=== PATIENT | male | born 1985 | race Caucasian/White ===

== ENCOUNTER 2024-03-06 08:36 | Emergency (ER) | payer MEDICAID, SELFPAY ==
[2024-03-06 08:38] VITALS: BP 145/84; PULSE 70; RESP 20; TEMP 36.6; O2SAT 99
--- NOTE | 2024-03-06 08:50 | ECG_ITS ---
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 Measurements Intervals [place] Rate: 66 P: 61 NE: 158 QRS: 42 QRSD: 95 T: 51 QT: 387 QTc: 408 Interpretive Statements SINUS RHYTHM INCOMPLETE RIGHT BUNDLE BRANCH BLOCK [90+ ms QRS DURATION, TERMINAL R IN V1/V2, 40+ ms S IN I/aVL/V4/V5/V6] No previous ECG available for comparison Electronically Signed On 03-06-2024 21:31:33 TIPPLE REPAIRER by Josse Fang M.D. [id number]
--- NOTE | 2024-03-06 08:50 | XR_ITS ---
WS: [id number] XR chest 1V portable [id number] REASON FOR EXAM: Chest pain FINDINGS: Somewhat prominent tortuosity and ectasia of the ascending aorta and aortic arch for age. Normal heart size. No previous examination for comparison. Calcified granulomas disease bilaterally. No acute pulmonary parenchymal or pleural abnormality. No significant abnormality of the bony thorax. XR/XR chest 1V portable [id number] IMPRESSION: No acute chest abnormality.
[2024-03-06 08:58] LABS: Basophils % 0.5 %; Eosinophils # 0.1 10^3/uL (0.0-0.8); Eosinophils % 1.9 %; Hematocrit 44.5 % (37-53); Lymphocytes # 2.3 10^3/uL (0.8-4.8); Lymphocytes % 36.9 %; Mean Corpuscular HGB Conc 32.8 g/dL (30-55); Mean Corpuscular Hemoglobin 30.5 pg (27-33); Mean Corpuscular Volume 92.9 fl (82-101); Mean Platelet Volume 11.1 fL (7.4-10.4); Monocytes # 0.6 10^3/uL (0.2-0.9); Monocytes % 9.1 %; Neutrophils # 3.23 10^3/uL (1.8-7.7); Neutrophils % 51.3 %; Nucleated Red Blood Cells % 0 %; Platelet Count 166 10^3/cmm (157-399); Red Blood Count 4.79 10^6/uL (3.85-5.65); Red Cell Distribution Width 13.2 % (12.1-15.1); White Blood Count 6.29 10^3/uL (3.29-11.43)
--- NOTE | 2024-03-06 09:17 | ED_ITS ---
HPI - Chest Pain 2 General: Chief Complaint: Chest Pain Stated Complaint: Chest Pain Time Seen by Provider: 03/06/24 08:48 History of Present Illness: 38-year-old male presents emergency room via EMS with complaint of chest discomfort. He was at work doing his usual activities began to have substernal chest pain that eventually after several minutes radiated up into his jaw and left shoulder. The nurse checked his blood pressure it was found to be somewhat elevated he continued to have the pain EMS was called. He was given nitro and insulin aspirin. He reports his pain went from a 7 out of 10 to 1 out of 10. He is not having no significant discomfort at this time. Initial EKG shows normal sinus rhythm without any acute ST changes. He has no history of any cardiac arrhythmias any history of coronary artery disease he is not a smoker is not diabetic. No significant family history of coronary artery disease Associated symptoms: Deny abdominal pain, dyspnea or fever(s) Related Data Home Medications Medication Instructions Recorded Confirmed ibuprofen 200 mg tablet 200 mg PO Q6H PRN Pain 03/06/24 03/06/24 Previous Rx's Medication Instructions Recorded aspirin 81 mg tablet,delayed 81 mg PO DAILY #30 tabs 03/06/24 release pantoprazole 40 mg tablet,delayed 40 mg PO BID 10 days #40 tabs 03/06/24 release (Protonix) Allergies Allergy/AdvReac Type Severity Reaction Status Date / Time No Known Allergies Allergy Verified 03/06/24 08:44 Review of Systems 2 Const: Denies: fever(s) or chills Card: Denies: chest pain Resp: Denies: dyspnea GI: Denies: abdominal pain : Denies: dysuria, urinary frequency or urinary urgency Musc: Denies: neck pain or back pain Skin/Breast: Denies: rash Physical Exam 2 Const: COMMON NORMALS: no acute distress GENERAL APPEARANCE: cooperative and comfortable ORIENTATION/CONSCIOUSNESS: Yes awake, Yes oriented to person, Yes oriented to place and Yes oriented to time HENMT: COMMON NORMALS: normocephalic, atraumatic and hearing grossly normal bilaterally HEAD & SCALP: normocephalic and atraumatic Resp: COMMON NORMALS: normal respiratory effort, No retractions, No use of accessory muscles and clear to auscultation bilaterally AUSCULTATION: clear to auscultation bilaterally Cardio: COMMON NORMALS: regular rate, regular rhythm and No murmurs present (Cardio) RATE: regular rate RHYTHM: regular rhythm GI: COMMON NORMALS: Soft to palpation and No hepatosplenomegaly present A USCULTATION: Yes normoactive bowel sounds PALPATION: Yes Soft to palpation, No Tenderness to palpation present (GI), No Guarding due to palpation present (GI) and Yes No hepatosplenomegaly present Extremity: COMMON NORMALS: normal to inspection, capillary refill normal, no clubbing, cyanosis or edema, no calf tenderness and no pedal edema Neuro: SENSORIUM/ORIENTATION: Yes oriented to person, Yes oriented to place and Yes oriented to time Skin: COMMON NORMALS: no rashes or lesions noted GENERAL SKIN EXAM: no rashes or lesions noted Course 2 Vital Signs: Vital signs: Vital Signs Temperature 97.9 F 03/06/24 08:38 Pulse Rate 68 03/06/24 11:00 Respiratory Rate 14 03/06/24 11:00 Blood Pressure 139/94 03/06/24 11:00 Pulse Oximetry 96 03/06/24 11:00 MDM - Chest Pain Medical Decision Making Patient pain-free at this time. EKG did not show any acute changes cardiac enzymes were negative on the trend. I suspect he had some esophageal spasm which is why the nitro relieves some of the pain. Will have him take a baby aspirin daily set up for an outpatient graded exercise stress test started on Protonix and follow-up with his primary care doctor. Patient is pain-free at the time of discharge. Medical Records I reviewed the patient's medical records. Lab Data I reviewed the patient's lab results. 03/06/24 08:20 03/06/24 08:20 Radiology Impressions Chest X-Ray 03/06/24 08:50 IMPRESSION: No acute chest abnormality. Laboratory Results WBC 6.29 10^3/uL (3.29-11.43) 03/06/24 08:20 RBC 4.79 10^6/uL (3.85-5.65) 03/06/24 08:20 Hgb 14.60 g/dL (11.27-16.99) 03/06/24 08:20 Hct 44.5 % (37-53) 03/06/24 08:20 MCV 92.9 fl (82-101) 03/06/24 08:20 MCH 30.5 pg (27-33) 03/06/24 08:20 MCHC 32.8 g/dL (30-55) 03/06/24 08:20 RDW 13.2 % (12.1-15.1) 03/06/24 08:20 Plt Count 166 10^3/cmm (157-399) 03/06/24 08:20 MPV 11.1 fL (7.4-10.4) H 03/06/24 08:20 Neut % (Auto) 51.3 % 03/06/24 08:20 Lymph % (Auto) 36.9 % 03/06/24 08:20 [place] % (Auto) 9.1 % 03/06/24 08:20 Eos % (Auto) 1.9 % 03/06/24 08:20 Baso % (Auto) 0.5 % 03/06/24 08:20 Neut # (Auto) 3.23 10^3/uL (1.8-7.7) 03/06/24 08:20 Lymph # (Auto) 2.3 10^3/uL (0.8-4.8) 03/06/24 08:20 [place] # (Auto) 0.6 10^3/uL (0.2-0.9) 03/06/24 08:20 Eos # (Auto) 0.1 10^3/uL (0.0-0.8) 03/06/24 08:20 Baso # (Auto) 0.0 10^3/uL (0.0-0.1) 03/06/24 08:20 Nucleated RBC % (auto) 0 % 03/06/24 08:20 Nucleated RBCs # 0.0 /100WBC 03/06/24 08:20 Sodium 141 mmol/L (136-145) 03/06/24 08:20 Potassium 3.9 mmol/L (3.5-5.1) 03/06/24 08:20 Chloride 100 mmol/L (98-107) 03/06/24 08:20 Carbon Dioxide 26 mmol/L (22-29) 03/06/24 08:20 Anion Gap 18.9 (5-19) 03/06/24 08:20 BUN 11 mg/dL (6-20) 03/06/24 08:20 Creatinine 0.6 mg/dL (0.7-1.2) L 03/06/24 08:20 GFR Calculation 151.6 mL/min (90-130) H 03/06/24 08:20 Glucose 105 mg/dL (65-115) 03/06/24 08:20 Calculated Osmolality 292 mOsm/kg (285-295) 03/06/24 08:20 Calcium 9.5 mg/dL (8.5-10.5) 03/06/24 08:20 Total Bilirubin 0.5 mg/dL (0.15-1.2) 03/06/24 08:20 AST 31 U/L (0-40) 03/06/24 08:20 ALT 35 U/L (0-41) 03/06/24 08:20 Alkaline Phosphatase 86 U/L (40-130) 03/06/24 08:20 Troponin T Baseline < 6 ng/L (0-15) 03/06/24 08:20 Troponin T 120 Minute 6.00 ng/L (0-15) 03/06/24 10:25 Delta Troponin T 0.79896 ABS# (0-10) 03/06/24 10:25 Total Protein 7.7 g/dL (6.6-8.7) 03/06/24 08:20 Albumin 5.2 g/dL (3.5-5.2) 03/06/24 08:20 Globulin 2.5 g/dL (1.3-4.6) 03/06/24 08:20 All radiology interpretation(s) finalized by discharge Clincial Decision Support The following clinical decision support tools were used to aid in care of the patient HEART Score -> History: Moderately Suspicious, EKG: Non-specific Changes, Age: Less than 45 yrs, Risk Factors: No Risk Factors Known, Troponin: Baseline Trop <16 ng/L. Resulting HEART Score: 2. Discharge Plan Discharge Patient Disposition: Home Clinical Impression: Atypical chest pain, Esophageal spasm Condition: Stable Prescriptions: New aspirin 81 mg tablet,delayed release (DR/EC) 81 mg PO DAILY Qty: 30 0RF pantoprazole [Protonix] 40 mg tablet,delayed release (DR/EC) 40 mg PO BID 10 Days Qty: 40 0RF Rx Instructions: 1 tablet twice daily for 10 days and 1 tablet daily No Action ibuprofen 200 mg Tablet 200 mg PO Q6H PRN (Reason: Pain) Discharge Orders: Discharge ED (Routine); Ordered 12/03/24 Ordered By: London Benavidez Patient Instructions: Diet for Stomach Ulcers and Gastritis (ED), Esophageal Spasm (ED), Opioid Safety, Pain Management Activity Restrictions/Additional Instructions: Thank you for choosing [facility] for your healthcare needs today. It is very important that you follow up as instructed or that you return to the Emergency Department should you have concerns or if your condition changes or worsens in any way. You were seen in the emergency room with complaints of chest discomfort your cardiac enzymes and EKGs did not show any acute abnormalities. Suspect some of your symptoms may be GI related. Will have you started on Protonix 1 tablet twice a day for 10 days then 1 tablet daily. Additionally we will have you start an enteric-coated baby aspirin once daily. digital learning platforms manager will make arrangements for you to follow-up with an outpatient exercise stress test. You should also follow-up with your primary care doctor. Coding Level of Care Code ED Director Orange for Marilou Sierra
[2024-03-06 09:18] LABS: Alanine Aminotransferase 35 U/L (0-41); Albumin Level 5.2 g/dL (3.5-5.2); Alkaline Phosphatase 86 U/L (40-130); Anion Gap 18.9 (5-19); Aspartate Amino Transferase 31 U/L (0-40); Blood Urea Nitrogen 11 mg/dL (6-20); Calcium 9.5 mg/dL (8.5-10.5); Carbon Dioxide 26 mmol/L (22-29); Chloride 100 mmol/L (98-107); Globulin 2.5 g/dL (1.3-4.6); Glomerular Filtration Rate 151.6 mL/min (90-130); Glucose 105 mg/dL (65-115); Osmolality Calculated 292 mOsm/kg (285-295); Potassium 3.9 mmol/L (3.5-5.1); Sodium 141 mmol/L (136-145); Total Bilirubin 0.5 mg/dL (0.15-1.2); Total Protein 7.7 g/dL (6.6-8.7)
[2024-03-06 09:19] LABS: Troponin(5th) Baseline < 6 ng/L (0-15)
[2024-03-06 10:13] VITALS: BP 141/90; PULSE 64; RESP 16; O2SAT 99
[2024-03-06 10:50] LABS: Troponin 5 2HR Delta 0.00001 ABS# (0-10)
--- NOTE | 2024-03-06 10:50 | ECG_ITS ---
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 Measurements Intervals [place] Rate: 66 P: 64 MA: 164 QRS: 47 QRSD: 98 T: 49 QT: 399 QTc: 420 Interpretive Statements SINUS RHYTHM INCOMPLETE RIGHT BUNDLE BRANCH BLOCK [90+ ms QRS DURATION, TERMINAL R IN V1/V2, 40+ ms S IN I/aVL/V4/V5/V6] Compared to ECG 03/06/2024 08:40:19 No significant changes Electronically Signed On 03-06-2024 21:53:06 VENDER by Josse Fang M.D. [id number]
[2024-03-06 11:00] VITALS: BP 139/94; PULSE 68; RESP 14; O2SAT 96
[2024-03-06 12:23] VITALS: BP 133/96; PULSE 75; O2SAT 99
== END 2024-03-06 12:26 | disposition home or self-care (01) ==
PROVIDERS: Emergency Provider Family Medicine
DX: R07.89 Other chest pain (principal); K22.4 Dyskinesia of esophagus; Z79.82 Long term (current) use of aspirin
CPT/HCPCS: 36415; 71045; 80053; 84484; 85025; 93005; 99285

== ENCOUNTER → 2024-06-26 15:44 | Outpatient (BNVA) | payer MEDICAID, SELFPAY | PROVIDERS: Visit Provider Podiatrist Foot & Ankle Surgery | DX: M25.572 Pain in left ankle and joints of left foot (principal); M79.89 Other specified soft tissue disorders | CPT/HCPCS: 73630 ==

== ENCOUNTER 2024-07-13 07:15 | Outpatient (CLI) | payer MEDICAID, SELFPAY ==
--- NOTE | 2024-07-13 07:15 | MR_ITS ---
WS: [id number] MRI LEFT FOOT WITH AND WITHOUT CONTRAST. COMPARISON: Radiograph 06/26/2024 Multiplanar, multisequence imaging is performed with and without contrast. MultiHance 20 mL. History: Cyst along the dorsal surface of the midfoot. MRI is centered over the area of concern along the mid tarsal region. No acute fracture or marrow edema. No cystic or solid mass is identified along the dorsal surface of the foot. Normal appearance of the anterior tibial tendon. The extensor tendons are normal. No signal abnormalities or fluid along the tendon sheaths. Very minimal bony protrusion involving extending dorsally from the medial cuneiform. This could potentially be the area of concern. There does appear to be a just a small amount of soft tissue edema superficial to the bony prominence. Lisfranc ligament is normal. No enhancing masses. No vascular malformations. MR/MR foot LT wo/w con [id number] IMPRESSION: 1. No cystic or solid mass associated with the dorsal midfoot. 2. Minimal bony prominence involving the medial cuneiform with a small amount of overlying soft tissue edema. This may be the area of clinical concern. 3. No enhancing masses or vascular malformation.
[2024-07-13] MEDS: gadobenate dimeglumine 20 mL vial IV (07:57)
== END 2024-07-13 07:16 | disposition home or self-care (01) ==
LOC: RAD 07:16
PROVIDERS: PCP Family Medicine; Visit Provider Podiatrist Foot & Ankle Surgery
DX: M79.89 Other specified soft tissue disorders (principal)
CPT/HCPCS: 73720